=== PATIENT | female | born 1980 | race Caucasian/White ===

== ENCOUNTER 2022-02-09 16:23 | Outpatient (REF) | payer MEDICAID, SELFPAY ==
--- NOTE | 2022-02-09 16:10 | PAPFT_PTH ---
PATIENT: Debra Hernandez LOC: [facility] U#:[id number] AGE/SX: 41/F ROOM: RE02/09/[address]: Linda Sanchez : 1980 BED: DIS: 02/09/2022 SPEC #: [id number] RECD: 02/09/22 17:15 STATUS: KRYSTAL RERoney #: [id number] KAYE: 02/09/22 16:[address]: Linda Sanchez DEPT: [facility] Cytology RECD BY: Nataly Schmidt ENTERED: 02/09/22 17:15 SP TYPE: PAPFT SURJIT DR: Jazz Ortega Tissues: 1 - CX/ENDOCX FOR PAP SMEARS Procedures: PAP THIN PREP/UVM Screening HPV DNA PROBE Comments: [id number]
== END 2022-02-09 16:24 | disposition home or self-care (01) ==
LOC: LBN 16:23
PROVIDERS: PCP Family Medicine; Visit Provider Obstetrics & Gynecology Gynecology
DX: Z12.4 Encounter for screening for malignant neoplasm of cervix (principal); Z11.51 Encounter for screening for human papillomavirus (HPV)
CPT/HCPCS: 88142; 87624

== ENCOUNTER → 2022-03-22 02:14 | Outpatient (CLI) | payer MEDICAID, SELFPAY ==
--- NOTE | 2022-03-22 06:45 | DI.US_ITS ---
Exam(s) US PELVIS TRANSVAGINAL EXAM: US PELVIS TRANSVAGINAL CLINICAL HISTORY: symptomatic fibroid uterus,n85.2. TECHNIQUE: Transabdominal and transvaginal pelvic ultrasound was performed using standard protocol. COMPARISON: No exams were available for comparison FINDINGS: KIDNEYS: Kidneys are symmetric in size. No evidence of renal calculi. No evidence of hydronephrosis. No renal mass or cyst identified. UTERUS: Position: Anteverted. Size: 15 cm long by 10.9 cm AP x 11.6 cm transverse cm Endometrium: 0.4 cm. Normal for patient's menstrual status. Myometrium: There is a 9.4 x 9.8 x 10.2 cm predominantly isoechoic mass occupying the anterior body a nd fundus of the uterus most consistent with a fibroid. Cervix: Unremarkable. OVARIES: Right: 4.5 x 3 x 2 cm Cyst or mass: No suspicious cystic or solid masses. Left: 3.6 x 2.6 x 1.8 cm Cyst or mass: No suspicious cystic or solid masses. DOPPLER: Color: Symmetric and uniform flow to both ovaries. No hyperemia. Duplex: Normal ovarian arterial waveforms visualized. CUL-DE-SAC: Free fluid: There is a small amount of free fluid adjacent to the right ovary. Other: None. IMPRESSION: 1. Normal sonographic appearance of the kidneys. 2. 10.2 cm fibroid occupying the anterior body and fundus of the uterus. 3. Unremarkable bilateral ovaries. DATA REPOSITORY:
--- NOTE | 2022-03-22 06:45 | DI.MAMMO_ITS ---
Exam(s) MAMMO SCREENING EXAM: MAMMO SCREENING CLINICAL HISTORY: screening,z12.39 TECHNIQUE: Bilateral full field digital CC and MLO mammographic images were obtained with 3D tomosyn thesis and utilizing computer aided detection (CAD). COMPARISON: Available for comparison. FINDINGS: Masses/Architectural Distortion: None seen. Microcalcifications: No suspicious pleomorphic-type are seen. Skin Thickening/Nipple Retraction: None. IMPRESSION: 1. No significant interval change with no specific features of malignancy noted. 2. Unless there is more urgent need, screening mammography is recommended, as per [employer] guidelines. BI-RADS Category 1 - Negative Breast Density - Category D - Extremely dense Breast density category C or D implies that the patient has dense breast tissue. Dense breast tissue is very common and is not abnormal but dense breast tissue can make it harder to find cancer on a ma mmogram. Also, dense breast tissue may increase their breast cancer risk. This information about the result of the mammogram report was provided to the patient to raise their awareness. Use this report when you speak with the patient about their risks for breast cancer, which includes their family hist ory. At that time, you may recommend for more screening tests (Ultrasound or MRI) as they might be us eful based on their risk. A negative radiographic report should not delay biopsy if a dominant or clinically suspicious mass is present. Up to ten percent of cancers are not identified on mammography. A negative report may reinforce clinical impression. Adenosis and dense breasts may obscure an underlying neoplasm. False positive reports average 6 to 10%. Patient will receive a letter notifying them of these results.
== END ==
PROVIDERS: PCP Family Medicine; Visit Provider Obstetrics & Gynecology Gynecology
DX: Z12.31 Encounter for screening mammogram for malignant neoplasm of breast (principal); N85.2 Hypertrophy of uterus; D25.9 Leiomyoma of uterus, unspecified
CPT/HCPCS: 77063; 77067; 76830; 76856

== ENCOUNTER 2022-03-28 16:05 | Outpatient (REF) | payer MEDICAID, SELFPAY ==
--- NOTE | 2022-03-28 16:00 | ENDOMET_PTH ---
PATIENT: Debra Hernandez LOC: [facility] U#:[id number] AGE/SX: 41/F ROOM: RE03/28/[address]: Linda Sanchez : 1980 BED: DIS: 03/28/2022 SPEC #: [id number] RECD: 03/28/22 17:02 STATUS: KRYSTAL RERoney #: [id number] KAYE: 03/28/22 16:[address]: Linda Sanchez DEPT: Surgical Specimen RECD BY: Nataly Schmidt ENTERED: 03/28/22 17:03 SP TYPE: Endomet OTHR DR: Jazz Ortega Tissues: 1 - ENDOMETRIUM BX/KIARA Procedures: GROSS AND MICRO LEVEL 4 Comments: [id number]
== END 2022-03-28 16:06 | disposition home or self-care (01) ==
LOC: LBN 16:05
PROVIDERS: PCP Family Medicine; Visit Provider Obstetrics & Gynecology Gynecology
DX: D25.9 Leiomyoma of uterus, unspecified (principal)
CPT/HCPCS: 88305